=== PATIENT | female | born 1945 | race Caucasian/White ===

== ENCOUNTER 2018-03-25 19:48 | Inpatient (IN) | payer MEDICARE ==
[~2018-03-25] VITALS: Ht 165.1 cm; Wt 60.5 kg
--- NOTE | ~2018-03-25 | OP ---
PATIENT NAME: ABI PANIAGUA MEDICAL RECORD: [id number] :47 LOCATION:[facility] D.[id number] ADMISSION DATE:03/25/18 SURGEON: NELIA AGUILLON MD DATE OF OPERATION: 03/26/2018 SURGEON: Nelia Aguillon MD (JJ) PREOPERATIVE DIAGNOSIS: Duodenal obstruction. 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 PROCEDURES PERFORMED: 1. Exploratory laparotomy. 2. Extensive lysis of adhesions requiring greater than 50% of the operative portion of the case. 3. Partial gastrectomy. 4. Abdominal washout. 5. Right IJ CVL placement. ANESTHESIA: General. COMPLICATIONS: None. SPECIMENS: Partial gastrectomy. Case was grossly contaminated. ESTIMATED BLOOD LOSS: 200 cc. OPERATIVE COURSE: After consent was obtained, the patient was taken to the operating room and placed in the supine position. A right IJ ultrasound CVL was placed. A time-out was taken to confirm the correct patient and procedure. General anesthesia was given. The abdomen was then prepped and draped in typical sterile fashion. An Ioban dressing was placed. Previous midline abdominal incision was opened using a #10 blade scalpel. Dissection was continued with the scalpel to the upper portion of midline incision until the fascia was encountered. The fascia was incised using a #10 blade scalpel. Under direct, the fascia was then opened with right-angle hemostat dissection until the abdomen was entered. Once entered, the remaining portion of the fascia was opened under direct vision. The patient had a previous ex lap with a Billroth II procedure, a second exploratory laparotomy for an open cholecystectomy, and a third exploratory laparotomy for a small bowel obstruction surgery. The patient has extensive lysis of adhesions. Greater than 50% of the operative time was spent performing lysis of adhesions of the anterior abdominal wall with combination of blunt electrocautery and sharp scissor dissection. Once this was complete, an Jeramie retractor was placed. The duodenum, as shown on imaging, was markedly dilated. The small bowel was run from the terminal ileum to the transverse colon mesentery. A retrocolic loop jejunostomy was going through the retrocolic mesentery. The duodenum was markedly dilated as it coursed from the second portion of the duodenum to the retroperitoneal area and up into the left upper quadrant and the spleen. The stomach was meticulously dissected off the liver bed. A gastro loop jejunostomy anastomosis was identified with a significant previous partial gastrectomy that was performed. A gastrotomy was made. Once the partial gastrotomy was made, OPERATIVE REPORT [id number] ARCELIA,ABI the gastrojejunostomy was patent. The efferent limb was patent. The afferent limb was occluded from stricture or adhesion. Blunt finger dissection was performed until the adhesion within the duodenal lumen and/or stricture was opened and dilated. There was an immediate 2 liters fluid. A suction catheter was placed into the afferent duodenal loop and approximately 2-1/2 liters of bilious material was suctioned with immediate decompression of the afferent limb. An NG tube was placed. It was passed through the stomach, through the gastrojejunostomy, and into the afferent duodenal limb. The gastrotomy was closed with a linear FRANKY stapler. The suture line was imbricated using 3-0 Vicryl suture and Evicel. Two J-P drains were placed. A J-P drain was placed into the pelvis. A second J-P drain was placed in the left lower quadrant and advanced along the left pericolic gutter and near the gastrojejunostomy anastomosis. The fascia was then closed using #1 looped PDS. Skin was closed with anjali. At the end of the case, all needle and instrument counts were correct. No complications occurred. The patient was extubated and transferred to the PACU in stable condition. TRANSINT:[id number] Voice Confirmation ID: [id number] DOCUMENT ID: [id number] NELIA AGUILLON MD at 1754 CC: [id number] DICTATION DATE: 03/26/18 154 INSIGHTS MANAGER: 03/26/18 1649 ADM IN [facility] [address] [place] [address]
[2018-03-25 23:00] VITALS: BP 108/68
[2018-03-26] VITALS (24 sets, daily range): BP systolic 90–143; BP diastolic 51–92; Ht 165.1 cm; Wt 60.5 kg
[2018-03-26] MEDS ORDERED: LASIX INJ40 MG/4 ML IV (00:33)
[2018-03-26] MEDS ORDERED: VENTOLIN HFA18 GM INH (00:34)
[2018-03-26] MEDS ORDERED: PROVENTIL HFA6.7 GM INH (00:35)
[2018-03-26] MEDS ORDERED: NICODERM C1 PATCH .1 TRANSDERM (00:36)
[2018-03-26] MEDS ORDERED: POTASSIUM20 MEQ/101 IV (00:37)
[2018-03-26] MEDS ORDERED: SYNTHROID25 MCG PO (00:38)
[2018-03-26] MEDS ORDERED: FLAGYL 500500 MG/100 IV (00:39)
[2018-03-26] MEDS ORDERED: CLONAZEPAM0.5 MG/TAB PO (00:40)
[2018-03-26] MEDS ORDERED: PROTONIX I40 MG/VIAL IV (00:40)
[2018-03-26] MEDS ORDERED: CARAFATE1 G/10 ML PO (00:41)
[2018-03-26] MEDS ORDERED: POTASSIUM40 MEQ/15 PO (00:43)
[2018-03-26] MEDS ORDERED: BUMINATE50 ML IV (00:44)
[2018-03-26] MEDS ORDERED: LISINOPRIL10 MG PO (00:46)
[2018-03-26] MEDS ORDERED: METOPROLOL TART50 MG PO (00:47)
[2018-03-26] MEDS ORDERED: PAROXETINE HCL10 MG PO (00:47)
[2018-03-26] MEDS ORDERED: NORVASC5 MG PO (00:48)
[2018-03-26] MEDS ORDERED: KLONOPIN0.5 MG PO (00:48)
[2018-03-26] MEDS ORDERED: TRAZODONE HCL50 MG PO (00:49)
[2018-03-26] MEDS ORDERED: PLAVIX75 MG PO (00:50)
[2018-03-26] MEDS ORDERED: VITAMIN B-121000 MCG PO (00:52)
[2018-03-26 04:20] LABS: BASOPHILS 0.6 % (0-2); EOSINOPHILS 1.5 % (0-7); HEMATOCRIT 27.4 % (36.0-48.0); HEMOGLOBIN 8.9 g/dL (12-16); IMMATURE GRANULOCYTES 0.3 % (0-5); LYMPHOCYTES 28.9 % (15-50); MCH 31.1 pg (26.0-34.0); MCHC 32.5 g/dL (31.0-37.0); MCV 95.8 fL (80.0-100.0); MEAN PLATELET VOLUME 8.6 fL (7.4-10.4); MONOCYTES 8.3 % (2-11); NEUTROPHILS 60.4 % (40-80); PLATELET COUNT 430 10x3/uL (130-400); RBC 2.86 10x6/uL (4.00-5.40); WBC 3.3 10x3/uL (4.8-10.8)
[2018-03-26 04:42] LABS: APTT 36.8 SECONDS (22.8-39.4); INR 1.24 (0.85-1.17); PROTIME 15.2 SECONDS (11.6-15.0)
[2018-03-26 04:48] LABS: ALBUMIN 1.6 g/dL (3.4-5.0); ALKALINE PHOSPHATASE 88 U/L (46-116); ALT (SGPT) 7 U/L (10-68); CALCIUM 7.3 mg/dL (8.5-10.1); CARBON DIOXIDE 25.4 mmol/L (21.0-32.0); CHLORIDE - SERUM 114 mmol/L (98-107); CREATININE - SERUM 0.4 mg/dL (0.6-1.3); SODIUM 146 mmol/L (136-145); UREA NITROGEN 7 mg/dL (7-18); eGFR NON AFRICAN AMERICAN > 90 mL/min (90-120)
[2018-03-26 04:52] LABS: CALC OSMOLALITY 286 mosm/kg (275-300); GLUCOSE 70 mg/dL (74-106); POTASSIUM - SERUM 2.9 mmol/L (3.5-5.1)
[2018-03-26 06:15] LABS: PRE-ALBUMIN 11.9 mg/dL (18.0-35.7); THYROID STIMULATING HORMONE 10.83 uIU/mL (0.36-3.74)
[2018-03-26 15:00] LABS: BASOPHILS 0.2 % (0-2); EOSINOPHILS 1.2 % (0-7); HEMATOCRIT 32.3 % (36.0-48.0); HEMOGLOBIN 10.5 g/dL (12-16); IMMATURE GRANULOCYTES 0.2 % (0-5); LYMPHOCYTES 22.1 % (15-50); MCH 30.1 pg (26.0-34.0); MCHC 32.5 g/dL (31.0-37.0); MEAN PLATELET VOLUME 8.3 fL (7.4-10.4); MONOCYTES 5.8 % (2-11); NEUTROPHILS 70.5 % (40-80); RDW 17.5 % (11.5-14.5)
[2018-03-26 15:02] LABS: MCV 92.6 fL (80.0-100.0); PLATELET COUNT 271 10x3/uL (130-400); RBC 3.49 10x6/uL (4.00-5.40); WBC 4.2 10x3/uL (4.8-10.8)
[2018-03-26 15:08] LABS: CARBON DIOXIDE 23.1 mmol/L (21.0-32.0); SODIUM 144 mmol/L (136-145)
[2018-03-26 15:10] LABS: CALC OSMOLALITY 281 mosm/kg (275-300); CREATININE - SERUM 0.2 mg/dL (0.6-1.3); UREA NITROGEN 5 mg/dL (7-18)
[2018-03-26 15:11] LABS: GLUCOSE 70 mg/dL (74-106); POTASSIUM - SERUM 3.5 mmol/L (3.5-5.1); eGFR NON AFRICAN AMERICAN > 90 mL/min (90-120)
[2018-03-26 15:12] LABS: CALCIUM 5.9 mg/dL (8.5-10.1); CHLORIDE - SERUM 116 mmol/L (98-107)
[2018-03-26 15:21] LABS: ALBUMIN 1.1 g/dL (3.4-5.0)
[2018-03-26 16:41] LABS: BASOPHILS 0 % (0-2); EOSINOPHILS 0 % (0-7); HEMATOCRIT 35.1 % (36.0-48.0); HEMOGLOBIN 11.6 g/dL (12-16); LYMPHOCYTES 23.5 % (15-50); MCH 30.4 pg (26.0-34.0); MCV 92.1 fL (80.0-100.0); MEAN PLATELET VOLUME 9.3 fL (7.4-10.4); MONOCYTES 0.9 % (2-11); NEUTROPHILS 75.6 % (40-80); RBC 3.81 10x6/uL (4.00-5.40)
[2018-03-26 16:43] LABS: CARBON DIOXIDE 24.9 mmol/L (21.0-32.0); CHLORIDE - SERUM 114 mmol/L (98-107); PLATELET COUNT 203 10x3/uL (130-400); POTASSIUM - SERUM 3.4 mmol/L (3.5-5.1); SODIUM 144 mmol/L (136-145); UREA NITROGEN 5 mg/dL (7-18); WBC 1.2 10x3/uL (4.8-10.8)
[2018-03-26 16:44] LABS: CALC OSMOLALITY 280 mosm/kg (275-300); CALCIUM 8.7 mg/dL (8.5-10.1); CREATININE - SERUM 0.3 mg/dL (0.6-1.3); GLUCOSE 49 mg/dL (74-106); eGFR NON AFRICAN AMERICAN > 90 mL/min (90-120)
[2018-03-27] VITALS (21 sets, daily range): BP systolic 87–115; BP diastolic 48–75
[2018-03-27 04:43] LABS: BASOPHILS 0.1 % (0-2); EOSINOPHILS 0 % (0-7); HEMATOCRIT 37.8 % (36.0-48.0); HEMOGLOBIN 12.4 g/dL (12-16); IMMATURE GRANULOCYTES 0.2 % (0-5); LYMPHOCYTES 4.1 % (15-50); MCH 30.5 pg (26.0-34.0); MCHC 32.8 g/dL (31.0-37.0); MCV 92.9 fL (80.0-100.0); MEAN PLATELET VOLUME 9.4 fL (7.4-10.4); MONOCYTES 2.4 % (2-11); NEUTROPHILS 93.2 % (40-80); RBC 4.07 10x6/uL (4.00-5.40); RDW 20.1 % (11.5-14.5)
[2018-03-27 04:46] LABS: PLATELET COUNT 131 10x3/uL (130-400); WBC 8.7 10x3/uL (4.8-10.8)
[2018-03-27 04:59] LABS: ALBUMIN 1.3 g/dL (3.4-5.0); ALKALINE PHOSPHATASE 66 U/L (46-116); CALCIUM 7.2 mg/dL (8.5-10.1); CARBON DIOXIDE 21.4 mmol/L (21.0-32.0); CHLORIDE - SERUM 113 mmol/L (98-107); PHOSPHOROUS 2.1 mg/dL (2.5-4.9); PROTEIN - SERUM 3.6 g/dL (6.4-8.2); SODIUM 142 mmol/L (136-145)
[2018-03-27 05:10] LABS: ALT (SGPT) 31 U/L (10-68); CALC OSMOLALITY 302 mosm/kg (275-300); CREATININE - SERUM 0.5 mg/dL (0.6-1.3); GLUCOSE 496 mg/dL (74-106); UREA NITROGEN 8 mg/dL (7-18); eGFR NON AFRICAN AMERICAN > 90 mL/min (90-120)
[2018-03-27 11:55] LABS: CALCIUM 7.8 mg/dL (8.5-10.1); CARBON DIOXIDE 18.7 mmol/L (21.0-32.0); CHLORIDE - SERUM 112 mmol/L (98-107); CREATININE - SERUM 0.5 mg/dL (0.6-1.3); POTASSIUM - SERUM 3.5 mmol/L (3.5-5.1); SODIUM 141 mmol/L (136-145); UREA NITROGEN 8 mg/dL (7-18); eGFR NON AFRICAN AMERICAN > 90 mL/min (90-120)
[2018-03-27 12:04] LABS: CALC OSMOLALITY 302 mosm/kg (275-300); MAGNESIUM - SERUM 2.1 mg/dL (1.8-2.4)
[2018-03-27 12:05] LABS: GLUCOSE 530 mg/dL (74-106)
[2018-03-28] VITALS (52 sets, daily range): BP systolic 76–124; BP diastolic 42–66
[2018-03-28 05:11] LABS: CALC OSMOLALITY 289 mosm/kg (275-300); CALCIUM 8.8 mg/dL (8.5-10.1); CHLORIDE - SERUM 115 mmol/L (98-107); CREATININE - SERUM 0.5 mg/dL (0.6-1.3); PRO BNP 5990 pg/mL (0-125); SODIUM 145 mmol/L (136-145); UREA NITROGEN 9 mg/dL (7-18); eGFR NON AFRICAN AMERICAN > 90 mL/min (90-120)
[2018-03-28 05:13] LABS: PHOSPHOROUS 1.2 mg/dL (2.5-4.9)
[2018-03-28 05:14] LABS: GLUCOSE 130 mg/dL (74-106)
[2018-03-28 21:22] LABS: BASOPHILS 0.1 % (0-2); EOSINOPHILS 0.6 % (0-7); IMMATURE GRANULOCYTES 0.3 % (0-5); LYMPHOCYTES 3.8 % (15-50); MCH 30.2 pg (26.0-34.0); MCHC 33.3 g/dL (31.0-37.0); MEAN PLATELET VOLUME 10.6 fL (7.4-10.4); MONOCYTES 4.2 % (2-11); RDW 20.4 % (11.5-14.5)
[2018-03-28 21:23] LABS: HEMATOCRIT 26.4 % (36.0-48.0); HEMOGLOBIN 8.8 g/dL (12-16); MCV 90.7 fL (80.0-100.0); PLATELET COUNT 99 10x3/uL (130-400); RBC 2.91 10x6/uL (4.00-5.40); WBC 18.6 10x3/uL (4.8-10.8)
[2018-03-28 21:39] LABS: ALKALINE PHOSPHATASE 68 U/L (46-116); BILIRUBIN - TOTAL 0.33 mg/dL (0.2-1.3); CALCIUM 8.8 mg/dL (8.5-10.1); CARBON DIOXIDE 23.3 mmol/L (21.0-32.0); CHLORIDE - SERUM 113 mmol/L (98-107); PHOSPHOROUS 3.1 mg/dL (2.5-4.9); PROTEIN - SERUM 4.4 g/dL (6.4-8.2); SODIUM 145 mmol/L (136-145)
[2018-03-28 21:40] LABS: ALT (SGPT) 20 U/L (10-68); CALC OSMOLALITY 286 mosm/kg (275-300); CREATININE - SERUM 0.7 mg/dL (0.6-1.3); GLUCOSE 67 mg/dL (74-106); POTASSIUM - SERUM 3.7 mmol/L (3.5-5.1); UREA NITROGEN 12 mg/dL (7-18); eGFR NON AFRICAN AMERICAN 87 mL/min (90-120)
[2018-03-29] VITALS (79 sets, daily range): BP systolic 93–148; BP diastolic 52–87
[2018-03-29 06:17] LABS: BASOPHILS 0.1 % (0-2); EOSINOPHILS 0.8 % (0-7); HEMATOCRIT 22.6 % (36.0-48.0); HEMOGLOBIN 7.5 g/dL (12-16); IMMATURE GRANULOCYTES 0.4 % (0-5); LYMPHOCYTES 3.8 % (15-50); MCH 30.2 pg (26.0-34.0); MCHC 33.2 g/dL (31.0-37.0); MCV 91.1 fL (80.0-100.0); MEAN PLATELET VOLUME 10.6 fL (7.4-10.4); MONOCYTES 4.5 % (2-11); NEUTROPHILS 90.4 % (40-80); PLATELET COUNT 72 10x3/uL (130-400); RBC 2.48 10x6/uL (4.00-5.40); RDW 20.1 % (11.5-14.5); WBC 14.6 10x3/uL (4.8-10.8)
[2018-03-29 06:44] LABS: ALKALINE PHOSPHATASE 63 U/L (46-116); ALT (SGPT) 15 U/L (10-68); BILIRUBIN - TOTAL 0.51 mg/dL (0.2-1.3); CALC OSMOLALITY 288 mosm/kg (275-300); CALCIUM 8.5 mg/dL (8.5-10.1); CARBON DIOXIDE 24.7 mmol/L (21.0-32.0); CHLORIDE - SERUM 113 mmol/L (98-107); CREATININE - SERUM 0.7 mg/dL (0.6-1.3); GLUCOSE 62 mg/dL (74-106); PHOSPHOROUS 3.1 mg/dL (2.5-4.9); POTASSIUM - SERUM 3.7 mmol/L (3.5-5.1); PRO BNP 3792 pg/mL (0-125); PROTEIN - SERUM 4.3 g/dL (6.4-8.2); SODIUM 146 mmol/L (136-145); UREA NITROGEN 12 mg/dL (7-18); eGFR NON AFRICAN AMERICAN 87 mL/min (90-120)
[2018-03-29 06:46] LABS: TROPONIN-I 0.083 ng/mL (0.000-0.060)
[2018-03-29 06:51] LABS: PLATELET ESTIMATE DECREASED
[2018-03-30] VITALS (23 sets, daily range): BP systolic 110–145; BP diastolic 61–86
[2018-03-30 04:56] LABS: BASOPHILS 0.1 % (0-2); EOSINOPHILS 1.5 % (0-7); IMMATURE GRANULOCYTES 0.3 % (0-5); LYMPHOCYTES 5.9 % (15-50); MCH 30.6 pg (26.0-34.0); MCHC 33.7 g/dL (31.0-37.0); MCV 90.7 fL (80.0-100.0); MEAN PLATELET VOLUME 10.9 fL (7.4-10.4); MONOCYTES 3.8 % (2-11); NEUTROPHILS 88.4 % (40-80); PLATELET COUNT 65 10x3/uL (130-400); RBC 2.16 10x6/uL (4.00-5.40); RDW 19.7 % (11.5-14.5); WBC 12.4 10x3/uL (4.8-10.8)
[2018-03-30 04:58] LABS: HEMATOCRIT 19.6 % (36.0-48.0); HEMOGLOBIN 6.6 g/dL (12-16)
[2018-03-30 05:05] LABS: CALC OSMOLALITY 283 mosm/kg (275-300); CALCIUM 8.7 mg/dL (8.5-10.1); CARBON DIOXIDE 24.9 mmol/L (21.0-32.0); CHLORIDE - SERUM 111 mmol/L (98-107); CREATININE - SERUM 0.6 mg/dL (0.6-1.3); MAGNESIUM - SERUM 2.1 mg/dL (1.8-2.4); PHOSPHOROUS 3.7 mg/dL (2.5-4.9); POTASSIUM - SERUM 3.6 mmol/L (3.5-5.1); SODIUM 144 mmol/L (136-145); UREA NITROGEN 13 mg/dL (7-18); eGFR NON AFRICAN AMERICAN > 90 mL/min (90-120)
[2018-03-30 05:06] LABS: GLUCOSE 39 mg/dL (74-106)
[2018-03-30 10:12] LABS: BILIRUBIN - TOTAL 0.8 mg/dL (0.2-1.3)
[2018-03-30 10:28] LABS: APTT 36.1 SECONDS (22.8-39.4); INR 1.07 (0.85-1.17); PROTIME 13.5 SECONDS (11.6-15.0)
[2018-03-31] VITALS (24 sets, daily range): BP systolic 105–150; BP diastolic 64–83
[2018-03-31 05:11] LABS: BASOPHILS 0.1 % (0-2); EOSINOPHILS 1.8 % (0-7); IMMATURE GRANULOCYTES 0.5 % (0-5); LYMPHOCYTES 6.6 % (15-50); MCH 28.1 pg (26.0-34.0); MCHC 34.4 g/dL (31.0-37.0); MEAN PLATELET VOLUME 9.9 fL (7.4-10.4); PLATELET COUNT 59 10x3/uL (130-400); RDW 21.4 % (11.5-14.5); WBC 9.3 10x3/uL (4.8-10.8)
[2018-03-31 05:17] LABS: HEMATOCRIT 31.4 % (36.0-48.0); HEMOGLOBIN 10.8 g/dL (12-16); MCV 81.8 fL (80.0-100.0); RBC 3.84 10x6/uL (4.00-5.40)
[2018-03-31 05:44] LABS: ALBUMIN 2.5 g/dL (3.4-5.0); ALKALINE PHOSPHATASE 64 U/L (46-116); CALCIUM 8.3 mg/dL (8.5-10.1); CHLORIDE - SERUM 113 mmol/L (98-107); CREATININE - SERUM 0.5 mg/dL (0.6-1.3); MAGNESIUM - SERUM 2.1 mg/dL (1.8-2.4); PHOSPHOROUS 4.1 mg/dL (2.5-4.9); POTASSIUM - SERUM 3.3 mmol/L (3.5-5.1); PROTEIN - SERUM 4.7 g/dL (6.4-8.2); SODIUM 147 mmol/L (136-145); UREA NITROGEN 13 mg/dL (7-18); eGFR NON AFRICAN AMERICAN > 90 mL/min (90-120)
[2018-03-31 05:53] LABS: ALT (SGPT) 11 U/L (10-68); CALC OSMOLALITY 296 mosm/kg (275-300); GLUCOSE 196 mg/dL (74-106)
[2018-04-01] VITALS (24 sets, daily range): BP systolic 103–148; BP diastolic 58–88
[2018-04-01 05:28] LABS: BASOPHILS 0.3 % (0-2); EOSINOPHILS 2.2 % (0-7); HEMATOCRIT 32.3 % (36.0-48.0); HEMOGLOBIN 10.9 g/dL (12-16); IMMATURE GRANULOCYTES 0.6 % (0-5); LYMPHOCYTES 8.5 % (15-50); MCH 27.9 pg (26.0-34.0); MCHC 33.7 g/dL (31.0-37.0); MCV 82.8 fL (80.0-100.0); MONOCYTES 8.7 % (2-11); NEUTROPHILS 79.7 % (40-80); RDW 21.1 % (11.5-14.5); WBC 7.9 10x3/uL (4.8-10.8)
[2018-04-01 05:30] LABS: PLATELET COUNT 96 10x3/uL (130-400)
[2018-04-01 05:46] LABS: ALBUMIN 2.7 g/dL (3.4-5.0); ALKALINE PHOSPHATASE 71 U/L (46-116); ALT (SGPT) 9 U/L (10-68); CALCIUM 8.8 mg/dL (8.5-10.1); CARBON DIOXIDE 30.3 mmol/L (21.0-32.0); CHLORIDE - SERUM 109 mmol/L (98-107); CREATININE - SERUM 0.5 mg/dL (0.6-1.3); MAGNESIUM - SERUM 1.9 mg/dL (1.8-2.4); PHOSPHOROUS 3.7 mg/dL (2.5-4.9); POTASSIUM - SERUM 3.4 mmol/L (3.5-5.1); PROTEIN - SERUM 5.1 g/dL (6.4-8.2); SODIUM 147 mmol/L (136-145); UREA NITROGEN 14 mg/dL (7-18); eGFR NON AFRICAN AMERICAN > 90 mL/min (90-120)
[2018-04-01 05:49] LABS: CALC OSMOLALITY 293 mosm/kg (275-300); GLUCOSE 124 mg/dL (74-106)
[2018-04-01 13:22] LABS: BASOPHILS 0.1 % (0-2); EOSINOPHILS 2.2 % (0-7); HEMATOCRIT 31.8 % (36.0-48.0); HEMOGLOBIN 10.6 g/dL (12-16); IMMATURE GRANULOCYTES 0.3 % (0-5); LYMPHOCYTES 6.9 % (15-50); MCH 27.7 pg (26.0-34.0); MCHC 33.3 g/dL (31.0-37.0); MCV 83.2 fL (80.0-100.0); MEAN PLATELET VOLUME 10.3 fL (7.4-10.4); MONOCYTES 8.6 % (2-11); NEUTROPHILS 81.9 % (40-80); PLATELET COUNT 106 10x3/uL (130-400); RBC 3.82 10x6/uL (4.00-5.40); RDW 20.6 % (11.5-14.5); WBC 8.7 10x3/uL (4.8-10.8)
[2018-04-01 13:39] LABS: CALC OSMOLALITY 288 mosm/kg (275-300); CALCIUM 8.9 mg/dL (8.5-10.1); CARBON DIOXIDE 31.2 mmol/L (21.0-32.0); CHLORIDE - SERUM 107 mmol/L (98-107); CREATININE - SERUM 0.5 mg/dL (0.6-1.3); GLUCOSE 117 mg/dL (74-106); POTASSIUM - SERUM 3.9 mmol/L (3.5-5.1); SODIUM 144 mmol/L (136-145); UREA NITROGEN 15 mg/dL (7-18); eGFR NON AFRICAN AMERICAN > 90 mL/min (90-120)
[2018-04-01 13:44] LABS: APTT 32.6 SECONDS (22.8-39.4); INR 1.24 (0.85-1.17); PROTIME 15.2 SECONDS (11.6-15.0)
[2018-04-01 15:25] LABS: PROTEIN - BODY FLUID 1.9 G/DL
[2018-04-02] VITALS (23 sets, daily range): BP systolic 93–139; BP diastolic 46–91
[2018-04-02 04:33] LABS: BASOPHILS 0.3 % (0-2); EOSINOPHILS 3.4 % (0-7); HEMOGLOBIN 9.4 g/dL (12-16); IMMATURE GRANULOCYTES 0.6 % (0-5); LYMPHOCYTES 10.2 % (15-50); MCH 28.7 pg (26.0-34.0); MCHC 33.6 g/dL (31.0-37.0); MEAN PLATELET VOLUME 10.5 fL (7.4-10.4); MONOCYTES 6.8 % (2-11); NEUTROPHILS 78.7 % (40-80); RBC 3.28 10x6/uL (4.00-5.40); RDW 19.9 % (11.5-14.5); WBC 7.1 10x3/uL (4.8-10.8)
[2018-04-02 04:37] LABS: MCV 85.4 fL (80.0-100.0); PLATELET COUNT 141 10x3/uL (130-400)
[2018-04-02 04:48] LABS: ALBUMIN 2.6 g/dL (3.4-5.0); ALKALINE PHOSPHATASE 85 U/L (46-116); ALT (SGPT) 9 U/L (10-68); CALC OSMOLALITY 289 mosm/kg (275-300); CALCIUM 8.2 mg/dL (8.5-10.1); CARBON DIOXIDE 30.5 mmol/L (21.0-32.0); CHLORIDE - SERUM 109 mmol/L (98-107); CREATININE - SERUM 0.5 mg/dL (0.6-1.3); GLUCOSE 97 mg/dL (74-106); MAGNESIUM - SERUM 1.8 mg/dL (1.8-2.4); PHOSPHOROUS 3.8 mg/dL (2.5-4.9); POTASSIUM - SERUM 4.1 mmol/L (3.5-5.1); PROTEIN - SERUM 4.9 g/dL (6.4-8.2); SODIUM 144 mmol/L (136-145); eGFR NON AFRICAN AMERICAN > 90 mL/min (90-120)
[2018-04-02 04:50] LABS: UREA NITROGEN 20 mg/dL (7-18)
[2018-04-03] VITALS (24 sets, daily range): BP systolic 102–142; BP diastolic 50–70
[2018-04-03 03:51] LABS: BASOPHILS 0.1 % (0-2); EOSINOPHILS 2.2 % (0-7); HEMATOCRIT 26.6 % (36.0-48.0); HEMOGLOBIN 8.5 g/dL (12-16); IMMATURE GRANULOCYTES 0.4 % (0-5); MCH 27.9 pg (26.0-34.0); MCV 87.2 fL (80.0-100.0); MEAN PLATELET VOLUME 9.9 fL (7.4-10.4); MONOCYTES 5.3 % (2-11); PLATELET COUNT 183 10x3/uL (130-400); RBC 3.05 10x6/uL (4.00-5.40); RDW 19.3 % (11.5-14.5)
[2018-04-03 04:07] LABS: ALBUMIN 2.6 g/dL (3.4-5.0); ALKALINE PHOSPHATASE 134 U/L (46-116); BILIRUBIN - TOTAL 0.71 mg/dL (0.2-1.3); CALC OSMOLALITY 284 mosm/kg (275-300); CALCIUM 8.3 mg/dL (8.5-10.1); CARBON DIOXIDE 32.5 mmol/L (21.0-32.0); CHLORIDE - SERUM 106 mmol/L (98-107); CREATININE - SERUM 0.4 mg/dL (0.6-1.3); GLUCOSE 105 mg/dL (74-106); PHOSPHOROUS 3.8 mg/dL (2.5-4.9); POTASSIUM - SERUM 4.1 mmol/L (3.5-5.1); SODIUM 141 mmol/L (136-145); UREA NITROGEN 23 mg/dL (7-18); eGFR NON AFRICAN AMERICAN > 90 mL/min (90-120)
[2018-04-03 04:08] LABS: ALT (SGPT) 16 U/L (10-68)
[2018-04-03 08:11] LABS: PRE-ALBUMIN 12.5 mg/dL (18.0-35.7); THYROID STIMULATING HORMONE 10.88 uIU/mL (0.36-3.74)
[2018-04-04] VITALS (24 sets, daily range): BP systolic 98–157; BP diastolic 49–82
[2018-04-04 04:43] LABS: ALBUMIN 2.7 g/dL (3.4-5.0); ALKALINE PHOSPHATASE 127 U/L (46-116); BILIRUBIN - TOTAL 0.53 mg/dL (0.2-1.3); CALC OSMOLALITY 283 mosm/kg (275-300); CALCIUM 8.2 mg/dL (8.5-10.1); CARBON DIOXIDE 31.1 mmol/L (21.0-32.0); CHLORIDE - SERUM 108 mmol/L (98-107); CREATININE - SERUM 0.4 mg/dL (0.6-1.3); GLUCOSE 104 mg/dL (74-106); MAGNESIUM - SERUM 2.2 mg/dL (1.8-2.4); PHOSPHOROUS 3.3 mg/dL (2.5-4.9); POTASSIUM - SERUM 4.2 mmol/L (3.5-5.1); PROTEIN - SERUM 5.1 g/dL (6.4-8.2); SODIUM 141 mmol/L (136-145); UREA NITROGEN 20 mg/dL (7-18); eGFR NON AFRICAN AMERICAN > 90 mL/min (90-120)
[2018-04-04 04:44] LABS: ALT (SGPT) 38 U/L (10-68)
[2018-04-04 08:28] LABS: BASOPHILS 0.2 % (0-2); EOSINOPHILS 2.1 % (0-7); HEMATOCRIT 25.3 % (36.0-48.0); IMMATURE GRANULOCYTES 0.2 % (0-5); LYMPHOCYTES 5.6 % (15-50); MCHC 31.6 g/dL (31.0-37.0); MCV 88.5 fL (80.0-100.0); MEAN PLATELET VOLUME 10.5 fL (7.4-10.4); MONOCYTES 4.1 % (2-11); NEUTROPHILS 87.8 % (40-80); RBC 2.86 10x6/uL (4.00-5.40); RDW 19.1 % (11.5-14.5); WBC 8.3 10x3/uL (4.8-10.8)
[2018-04-04 08:29] LABS: PLATELET COUNT 307 10x3/uL (130-400)
[2018-04-05] VITALS (23 sets, daily range): BP systolic 96–158; BP diastolic 48–87
[2018-04-05 04:15] LABS: BASOPHILS 0.8 % (0-2); EOSINOPHILS 2.9 % (0-7); HEMATOCRIT 25.7 % (36.0-48.0); HEMOGLOBIN 7.9 g/dL (12-16); IMMATURE GRANULOCYTES 0.2 % (0-5); LYMPHOCYTES 5.2 % (15-50); MCH 27.5 pg (26.0-34.0); MCHC 30.7 g/dL (31.0-37.0); MCV 89.5 fL (80.0-100.0); MEAN PLATELET VOLUME 9.9 fL (7.4-10.4); MONOCYTES 3.8 % (2-11); NEUTROPHILS 87.1 % (40-80); RBC 2.87 10x6/uL (4.00-5.40); RDW 18.9 % (11.5-14.5); WBC 8.5 10x3/uL (4.8-10.8)
[2018-04-05 04:21] LABS: PLATELET COUNT 418 10x3/uL (130-400)
[2018-04-05 04:28] LABS: CALC OSMOLALITY 281 mosm/kg (275-300); CALCIUM 8.5 mg/dL (8.5-10.1); CARBON DIOXIDE 30.8 mmol/L (21.0-32.0); CHLORIDE - SERUM 106 mmol/L (98-107); CREATININE - SERUM 0.3 mg/dL (0.6-1.3); GLUCOSE 126 mg/dL (74-106); MAGNESIUM - SERUM 2.4 mg/dL (1.8-2.4); POTASSIUM - SERUM 4.4 mmol/L (3.5-5.1); SODIUM 139 mmol/L (136-145); UREA NITROGEN 17 mg/dL (7-18); eGFR NON AFRICAN AMERICAN > 90 mL/min (90-120)
[2018-04-06] VITALS (24 sets, daily range): BP systolic 99–162; BP diastolic 46–74
[2018-04-06 06:17] LABS: CALC OSMOLALITY 281 mosm/kg (275-300); CALCIUM 8.5 mg/dL (8.5-10.1); CARBON DIOXIDE 31.7 mmol/L (21.0-32.0); CHLORIDE - SERUM 106 mmol/L (98-107); CREATININE - SERUM 0.3 mg/dL (0.6-1.3); GLUCOSE 86 mg/dL (74-106); MAGNESIUM - SERUM 2.4 mg/dL (1.8-2.4); PHOSPHOROUS 2.6 mg/dL (2.5-4.9); POTASSIUM - SERUM 4.8 mmol/L (3.5-5.1); SODIUM 141 mmol/L (136-145); UREA NITROGEN 17 mg/dL (7-18); eGFR NON AFRICAN AMERICAN > 90 mL/min (90-120)
[2018-04-06 07:02] LABS: BASOPHILS 1.6 % (0-2); EOSINOPHILS 4.7 % (0-7); HEMATOCRIT 24.2 % (36.0-48.0); IMMATURE GRANULOCYTES 0.4 % (0-5); LYMPHOCYTES 8.2 % (15-50); MCV 90.3 fL (80.0-100.0); MONOCYTES 6.9 % (2-11); NEUTROPHILS 78.2 % (40-80); RBC 2.68 10x6/uL (4.00-5.40); RDW 19.3 % (11.5-14.5); WBC 8.1 10x3/uL (4.8-10.8)
[2018-04-06 07:18] LABS: HEMOGLOBIN 7.5 g/dL (12-16); PLATELET COUNT 628 10x3/uL (130-400)
[2018-04-07] VITALS (23 sets, daily range): BP systolic 92–150; BP diastolic 50–82
[2018-04-07 05:02] LABS: BASOPHILS 2.7 % (0-2); EOSINOPHILS 5.3 % (0-7); HEMATOCRIT 28.7 % (36.0-48.0); IMMATURE GRANULOCYTES 0.5 % (0-5); LYMPHOCYTES 9.5 % (15-50); MCHC 31.4 g/dL (31.0-37.0); MCV 89.4 fL (80.0-100.0); MEAN PLATELET VOLUME 9.3 fL (7.4-10.4); RBC 3.21 10x6/uL (4.00-5.40); RDW 18.5 % (11.5-14.5); WBC 8.2 10x3/uL (4.8-10.8)
[2018-04-07 05:09] LABS: PLATELET COUNT 762 10x3/uL (130-400)
[2018-04-07 05:26] LABS: CALC OSMOLALITY 282 mosm/kg (275-300); CALCIUM 8.5 mg/dL (8.5-10.1); CARBON DIOXIDE 30.2 mmol/L (21.0-32.0); CHLORIDE - SERUM 106 mmol/L (98-107); CREATININE - SERUM 0.3 mg/dL (0.6-1.3); GLUCOSE 103 mg/dL (74-106); MAGNESIUM - SERUM 2.4 mg/dL (1.8-2.4); SODIUM 141 mmol/L (136-145); UREA NITROGEN 17 mg/dL (7-18); eGFR NON AFRICAN AMERICAN > 90 mL/min (90-120)
[2018-04-07 05:27] LABS: PHOSPHOROUS 3.7 mg/dL (2.5-4.9)
[2018-04-08] VITALS (24 sets, daily range): BP systolic 92–203; BP diastolic 45–87
[2018-04-08 05:15] LABS: BASOPHILS 3.2 % (0-2); EOSINOPHILS 5.5 % (0-7); HEMATOCRIT 27.4 % (36.0-48.0); HEMOGLOBIN 8.7 g/dL (12-16); IMMATURE GRANULOCYTES 0.5 % (0-5); MCH 28.1 pg (26.0-34.0); MCHC 31.8 g/dL (31.0-37.0); MCV 88.4 fL (80.0-100.0); MEAN PLATELET VOLUME 8.9 fL (7.4-10.4); MONOCYTES 7.5 % (2-11); NEUTROPHILS 71.3 % (40-80); PLATELET COUNT 871 10x3/uL (130-400); RDW 18.4 % (11.5-14.5); WBC 7.5 10x3/uL (4.8-10.8)
[2018-04-08 05:44] LABS: CALC OSMOLALITY 278 mosm/kg (275-300); CALCIUM 8.4 mg/dL (8.5-10.1); CARBON DIOXIDE 29.7 mmol/L (21.0-32.0); CHLORIDE - SERUM 105 mmol/L (98-107); CREATININE - SERUM 0.3 mg/dL (0.6-1.3); GLUCOSE 104 mg/dL (74-106); MAGNESIUM - SERUM 2.6 mg/dL (1.8-2.4); POTASSIUM - SERUM 4.6 mmol/L (3.5-5.1); SODIUM 139 mmol/L (136-145); UREA NITROGEN 15 mg/dL (7-18); eGFR NON AFRICAN AMERICAN > 90 mL/min (90-120)
[2018-04-09] VITALS (24 sets, daily range): BP systolic 99–133; BP diastolic 48–69
[2018-04-09 04:22] LABS: BASOPHILS 3.4 % (0-2); EOSINOPHILS 7.5 % (0-7); HEMATOCRIT 27.2 % (36.0-48.0); HEMOGLOBIN 8.6 g/dL (12-16); IMMATURE GRANULOCYTES 0.8 % (0-5); LYMPHOCYTES 14.8 % (15-50); MCH 27.8 pg (26.0-34.0); MCHC 31.6 g/dL (31.0-37.0); MONOCYTES 7.1 % (2-11); NEUTROPHILS 66.4 % (40-80); PLATELET COUNT 979 10x3/uL (130-400); RBC 3.09 10x6/uL (4.00-5.40); RDW 18.1 % (11.5-14.5); WBC 6.5 10x3/uL (4.8-10.8)
[2018-04-09 04:32] LABS: APTT 35.5 SECONDS (22.8-39.4); INR 1.11 (0.85-1.17); PROTIME 13.9 SECONDS (11.6-15.0)
[2018-04-09 04:46] LABS: CALC OSMOLALITY 274 mosm/kg (275-300); CALCIUM 8.5 mg/dL (8.5-10.1); CARBON DIOXIDE 32.4 mmol/L (21.0-32.0); CHLORIDE - SERUM 103 mmol/L (98-107); CREATININE - SERUM 0.3 mg/dL (0.6-1.3); GLUCOSE 82 mg/dL (74-106); MAGNESIUM - SERUM 2.2 mg/dL (1.8-2.4); PHOSPHOROUS 4.9 mg/dL (2.5-4.9); POTASSIUM - SERUM 4.1 mmol/L (3.5-5.1); PRO BNP 3384 pg/mL (0-125); SODIUM 138 mmol/L (136-145); UREA NITROGEN 13 mg/dL (7-18); eGFR NON AFRICAN AMERICAN > 90 mL/min (90-120)
[2018-04-10] VITALS (50 sets, daily range): BP systolic 80–145; BP diastolic 47–70
[2018-04-10 03:56] LABS: BASOPHILS 3.1 % (0-2); EOSINOPHILS 7.2 % (0-7); HEMATOCRIT 26.9 % (36.0-48.0); HEMOGLOBIN 8.5 g/dL (12-16); IMMATURE GRANULOCYTES 0.7 % (0-5); LYMPHOCYTES 14.1 % (15-50); MCH 27.9 pg (26.0-34.0); MCHC 31.6 g/dL (31.0-37.0); MCV 88.2 fL (80.0-100.0); MEAN PLATELET VOLUME 8.8 fL (7.4-10.4); MONOCYTES 8.3 % (2-11); NEUTROPHILS 66.6 % (40-80); RBC 3.05 10x6/uL (4.00-5.40); RDW 18.2 % (11.5-14.5); WBC 7.1 10x3/uL (4.8-10.8)
[2018-04-10 03:57] LABS: PLATELET COUNT 1000 10x3/uL (130-400)
[2018-04-10 04:23] LABS: ALBUMIN 2.3 g/dL (3.4-5.0); ALKALINE PHOSPHATASE 118 U/L (46-116); ALT (SGPT) 24 U/L (10-68); CALC OSMOLALITY 278 mosm/kg (275-300); CALCIUM 8.2 mg/dL (8.5-10.1); CARBON DIOXIDE 30.2 mmol/L (21.0-32.0); CHLORIDE - SERUM 103 mmol/L (98-107); CREATININE - SERUM 0.2 mg/dL (0.6-1.3); GLUCOSE 82 mg/dL (74-106); MAGNESIUM - SERUM 2.1 mg/dL (1.8-2.4); PHOSPHOROUS 4.5 mg/dL (2.5-4.9); POTASSIUM - SERUM 4.1 mmol/L (3.5-5.1); PROTEIN - SERUM 5.3 g/dL (6.4-8.2); SODIUM 140 mmol/L (136-145); THYROID STIMULATING HORMONE 14.88 uIU/mL (0.36-3.74); UREA NITROGEN 14 mg/dL (7-18); eGFR NON AFRICAN AMERICAN > 90 mL/min (90-120)
[2018-04-11] VITALS (24 sets, daily range): BP systolic 102–157; BP diastolic 44–76
[2018-04-11 03:52] LABS: BASOPHILS 3.2 % (0-2); EOSINOPHILS 8.5 % (0-7); HEMATOCRIT 25.1 % (36.0-48.0); LYMPHOCYTES 14.3 % (15-50); MCH 28.5 pg (26.0-34.0); MCHC 31.9 g/dL (31.0-37.0); MCV 89.3 fL (80.0-100.0); MEAN PLATELET VOLUME 8.5 fL (7.4-10.4); MONOCYTES 7.6 % (2-11); NEUTROPHILS 65.4 % (40-80); PLATELET COUNT 916 10x3/uL (130-400); RBC 2.81 10x6/uL (4.00-5.40); RDW 18.1 % (11.5-14.5); WBC 7.1 10x3/uL (4.8-10.8)
[2018-04-11 04:07] LABS: ALBUMIN 2.2 g/dL (3.4-5.0); ALKALINE PHOSPHATASE 113 U/L (46-116); ALT (SGPT) 23 U/L (10-68); BILIRUBIN - TOTAL 0.27 mg/dL (0.2-1.3); CALC OSMOLALITY 280 mosm/kg (275-300); CALCIUM 7.9 mg/dL (8.5-10.1); CARBON DIOXIDE 31.3 mmol/L (21.0-32.0); CHLORIDE - SERUM 104 mmol/L (98-107); GLUCOSE 115 mg/dL (74-106); MAGNESIUM - SERUM 2.1 mg/dL (1.8-2.4); PHOSPHOROUS 3.4 mg/dL (2.5-4.9); PROTEIN - SERUM 5.1 g/dL (6.4-8.2); SODIUM 140 mmol/L (136-145); UREA NITROGEN 14 mg/dL (7-18)
[2018-04-11 04:14] LABS: CREATININE - SERUM 0.4 mg/dL (0.6-1.3); eGFR NON AFRICAN AMERICAN > 90 mL/min (90-120)
[2018-04-12] VITALS (24 sets, daily range): BP systolic 93–144; BP diastolic 45–64
[2018-04-12 04:30] LABS: BASOPHILS 3.5 % (0-2); HEMATOCRIT 25.5 % (36.0-48.0); HEMOGLOBIN 7.7 g/dL (12-16); IMMATURE GRANULOCYTES 1.1 % (0-5); LYMPHOCYTES 13.5 % (15-50); MCH 27.9 pg (26.0-34.0); MCHC 30.2 g/dL (31.0-37.0); MEAN PLATELET VOLUME 8.8 fL (7.4-10.4); MONOCYTES 8.3 % (2-11); NEUTROPHILS 63.6 % (40-80); PLATELET COUNT 972 10x3/uL (130-400); RBC 2.76 10x6/uL (4.00-5.40); RDW 18.1 % (11.5-14.5); WBC 6.6 10x3/uL (4.8-10.8)
[2018-04-12 04:34] LABS: MCV 92.4 fL (80.0-100.0)
[2018-04-12 04:54] LABS: ALBUMIN 2.1 g/dL (3.4-5.0); ALKALINE PHOSPHATASE 108 U/L (46-116); ALT (SGPT) 21 U/L (10-68); CALC OSMOLALITY 276 mosm/kg (275-300); CARBON DIOXIDE 32.2 mmol/L (21.0-32.0); CHLORIDE - SERUM 105 mmol/L (98-107); CREATININE - SERUM 0.3 mg/dL (0.6-1.3); GLUCOSE 101 mg/dL (74-106); MAGNESIUM - SERUM 2.3 mg/dL (1.8-2.4); PHOSPHOROUS 3.4 mg/dL (2.5-4.9); POTASSIUM - SERUM 4.4 mmol/L (3.5-5.1); PROTEIN - SERUM 5.1 g/dL (6.4-8.2); SODIUM 138 mmol/L (136-145); UREA NITROGEN 14 mg/dL (7-18); eGFR NON AFRICAN AMERICAN > 90 mL/min (90-120)
[2018-04-12 22:11] LABS: APPEARANCE CLEAR (CLEAR); BILIRUBIN NEGATIVE (NEGATIVE); COLOR DK YELLOW (YELLOW); GLUCOSE NEGATIVE (NEGATIVE); KETONE NEGATIVE (NEGATIVE); NITRITE NEGATIVE (NEGATIVE); PROTEIN TRACE mg/dL (NEGATIVE); SPECIFIC GRAVITY 1.015 (1.005-1.020); UROBILINOGEN NORMAL (NORMAL)
[2018-04-12 22:12] LABS: WHITE CELLS - URINE 0-5 /hpf (0-5)
[2018-04-12 22:13] LABS: BACTERIA MODERATE /hpf (NONE SEEN); EPITHELIAL CELLS 0-5 /hpf (0-5)
[2018-04-13] VITALS (23 sets, daily range): BP systolic 90–184; BP diastolic 46–100
[2018-04-13 04:42] LABS: BASOPHILS 2.2 % (0-2); IMMATURE GRANULOCYTES 1.1 % (0-5); LYMPHOCYTES 8.6 % (15-50); MCH 28.2 pg (26.0-34.0); MCHC 30.9 g/dL (31.0-37.0); MCV 91.2 fL (80.0-100.0); MEAN PLATELET VOLUME 8.7 fL (7.4-10.4); MONOCYTES 7.5 % (2-11); NEUTROPHILS 73.6 % (40-80); PLATELET COUNT 911 10x3/uL (130-400); RDW 17.9 % (11.5-14.5)
[2018-04-13 04:48] LABS: CALC OSMOLALITY 273 mosm/kg (275-300); CALCIUM 8.4 mg/dL (8.5-10.1); CARBON DIOXIDE 32.2 mmol/L (21.0-32.0); CHLORIDE - SERUM 104 mmol/L (98-107); CREATININE - SERUM 0.3 mg/dL (0.6-1.3); GLUCOSE 97 mg/dL (74-106); SODIUM 136 mmol/L (136-145); UREA NITROGEN 17 mg/dL (7-18); eGFR NON AFRICAN AMERICAN > 90 mL/min (90-120)
[2018-04-13 04:52] LABS: POTASSIUM - SERUM 5.1 mmol/L (3.5-5.1)
[2018-04-13 04:55] LABS: HEMATOCRIT 31.1 % (36.0-48.0); HEMOGLOBIN 9.6 g/dL (12-16); RBC 3.41 10x6/uL (4.00-5.40)
[2018-04-14] VITALS (12 sets, daily range): BP systolic 96–143; BP diastolic 47–87
[2018-04-14 05:58] LABS: BASOPHILS 1.2 % (0-2); EOSINOPHILS 5.9 % (0-7); HEMATOCRIT 30.9 % (36.0-48.0); HEMOGLOBIN 9.4 g/dL (12-16); MCH 28.3 pg (26.0-34.0); MCHC 30.4 g/dL (31.0-37.0); MCV 93.1 fL (80.0-100.0); MEAN PLATELET VOLUME 8.8 fL (7.4-10.4); MONOCYTES 5.3 % (2-11); NEUTROPHILS 80.6 % (40-80); PLATELET COUNT 850 10x3/uL (130-400); RBC 3.32 10x6/uL (4.00-5.40); RDW 17.5 % (11.5-14.5); WBC 12.3 10x3/uL (4.8-10.8)
[2018-04-14 06:33] LABS: CALC OSMOLALITY 276 mosm/kg (275-300); CALCIUM 8.7 mg/dL (8.5-10.1); CARBON DIOXIDE 33.7 mmol/L (21.0-32.0); CHLORIDE - SERUM 104 mmol/L (98-107); CREATININE - SERUM 0.3 mg/dL (0.6-1.3); GLUCOSE 88 mg/dL (74-106); MAGNESIUM - SERUM 2.2 mg/dL (1.8-2.4); PHOSPHOROUS 3.5 mg/dL (2.5-4.9); POTASSIUM - SERUM 4.9 mmol/L (3.5-5.1); SODIUM 138 mmol/L (136-145); UREA NITROGEN 17 mg/dL (7-18); eGFR NON AFRICAN AMERICAN > 90 mL/min (90-120)
== END 2018-04-14 13:46 | DRG 3 ==
LOC: D.ICU 19:48
PROVIDERS: Anesthesiology; Internal Medicine Hematology & Oncology; Internal Medicine Pulmonary Disease; Radiology Vascular & Interventional Radiology; Surgery
PROC: 05HM33Z Insertion of Infusion Device into Right Internal Jugular Vein, Percutaneous Approach (ICD-10-PCS; 2018-03-26)
PROC: 0JN80ZZ Release Abdomen Subcutaneous Tissue and Fascia, Open Approach (ICD-10-PCS; 2018-03-26)
PROC: 0DB60ZZ Excision of Stomach, Open Approach (ICD-10-PCS; principal; 2018-03-26 12:00)
PROC: 5A1955Z Respiratory Ventilation, Greater than 96 Consecutive Hours (ICD-10-PCS; 2018-03-28)
PROC: 0BH17EZ Insertion of Endotracheal Airway into Trachea, Via Natural or Artificial Opening (ICD-10-PCS; 2018-03-28)
PROC: 0W993ZZ Drainage of Right Pleural Cavity, Percutaneous Approach (ICD-10-PCS; 2018-04-01)
PROC: 05HY33Z Insertion of Infusion Device into Upper Vein, Percutaneous Approach (ICD-10-PCS; 2018-04-09)
PROC: 0B113F4 Bypass Trachea to Cutaneous with Tracheostomy Device, Percutaneous Approach (ICD-10-PCS; 2018-04-10)
PROC: 0B918ZZ Drainage of Trachea, Via Natural or Artificial Opening Endoscopic (ICD-10-PCS; 2018-04-10)
DX: K31.5 Obstruction of duodenum (principal); E43 Unspecified severe protein-calorie malnutrition; J96.21 Acute and chronic respiratory failure with hypoxia; J96.22 Acute and chronic respiratory failure with hypercapnia; I50.33 Acute on chronic diastolic (congestive) heart failure; Z68.1 Body mass index [BMI] 19.9 or less, adult; J98.11 Atelectasis; E87.0 Hyperosmolality and hypernatremia; J44.1 Chronic obstructive pulmonary disease with (acute) exacerbation; J90 Pleural effusion, not elsewhere classified; E87.2 Acidosis; D62 Acute posthemorrhagic anemia; I10 Essential (primary) hypertension; F17.200 Nicotine dependence, unspecified, uncomplicated; D64.9 Anemia, unspecified; D72.819 Decreased white blood cell count, unspecified; E87.6 Hypokalemia; H91.90 Unspecified hearing loss, unspecified ear; F41.8 Other specified anxiety disorders; E03.9 Hypothyroidism, unspecified; R73.9 Hyperglycemia, unspecified; Z98.84 Bariatric surgery status; I11.0 Hypertensive heart disease with heart failure; R60.0 Localized edema